=== PATIENT | male | born 1960 | race African-American/Black ===

== ENCOUNTER 2016-10-16 19:36 | Emergency (ER) | payer OTHER ==
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
[2016-10-16 19:17] LABS: BASOPHIL# 0.1 X10e3 (0-0.3); BASOPHIL% 0.7 % (0-2.5); EOSINOPHIL# 0.6 X10e3 (0-0.7); EOSINOPHIL% 7.1 % (0.0-7.0); HEMATOCRIT 38.1 % (38.0-50.0); HEMOGLOBIN 12.5 gm/dL (13.0-16.0); LYMPHOCYTE# 3.9 X10e3 (1.0-3.5); LYMPHOCYTE% 49.9 % (17.0-45.0); MEAN CELL VOLUME 105.8 FL (83-96); MEAN CORPUSCULAR HEMOGLOBIN 34.7 PG (28-34); MEAN CORPUSCULAR HGB CONC 32.8 g/dL (30-36); MEAN PLATELET VOLUME 9.8 FL (6.5-11.5); MONOCYTE# 0.5 X10e3 (0-1.0); MONOCYTE% 6.4 % (3.0-12.0); NEUTROPHIL# 2.8 X10e3 (1.5-7.1); NEUTROPHIL% 35.9 % (40-75); PLATELET COUNT 192 X10e3 (140-420); RED CELL DISTRIBUTION WIDTH 15.3 % (11.0-15.5); WHITE BLOOD COUNT 7.9 X10e3 (4.0-10.5)
[2016-10-16 19:20] LABS: DIFF IND NO
[2016-10-16 19:32] LABS: PARTIAL THROMBOPLASTIN TIME 26.4 SECONDS (23.5-31.3)
[~2016-10-16 19:36] MED LIST: ACETAMINOPHEN650 M1 PR; ALB/IPRATROPIUM/1 E1; AMLODIPINE BESYL5 MG PO; AMOXICILLIN875 MG PO; BP MED; FLEXERIL10 MG PO; GLUCOPHAGE850 MG PO; GLUCOTROL PO; LOPID600 MG PO; METFORMIN HCL500 M1 PO; NEURONTIN300 MG PO; NORCO 7.5-3251 EACH PO; PAIN MED; PRILOSEC20 MG PO; PROTONIX PO; ROBAXIN 750750 M1; TEMAZEPAM PO
[2016-10-16 19:40] LABS: ALBUMIN SERUM 3.8 g/dL (3.5-5.0); ALKALINE PHOSPHATASE 100 U/L (32-92); ALT (SGPT) 37 U/L (10-40); AST (SGOT) 39 U/L (10-42); BILIRUBIN, DIRECT 0.1 mg/dL (0.0-0.2); BILIRUBIN,INDIRECT 0.3 mg/dL (0.0-0.9); BILIRUBIN,TOTAL 0.4 mg/dL (0.2-2.0); BLOOD UREA NITROGEN 18 mg/dL (9-23); CALCIUM SERUM 9.1 mg/dL (8.4-10.2); CARBON DIOXIDE 25 mmol/L (22-31); CHLORIDE 102 mmol/L (100-111); CREATININE SERUM 1.2 mg/dL (0.6-1.4); GLOM FILT RATE Estimated ABOVE60 mL/min (>60); GLUCOSE FASTING 67 mg/dL (70-110); POTASSIUM 4.1 mmol/L (3.5-5.1); PROTEIN TOTAL SERUM 8.4 g/dL (6.0-8.3); SODIUM 137 mmol/L (135-145)
== END 2016-10-16 19:55 | disposition home or self-care (01) ==
LOC: CED 19:36
PROVIDERS: Emergency Medicine
DX: S31.114A Laceration without foreign body of abdominal wall, left lower quadrant without penetration into peritoneal cavity, initial encounter (principal); E11.9 Type 2 diabetes mellitus without complications; F17.210 Nicotine dependence, cigarettes, uncomplicated; X58.XXXA Exposure to other specified factors, initial encounter; Y92.488 Other paved roadways as the place of occurrence of the external cause
CPT/HCPCS: 36415; 71010; 80048; 80076; 85025; 85610; 85730; 99285

== ENCOUNTER → 2016-12-20 | Outpatient (CLI) | payer OTHER ==
--- NOTE | ~2016-12-20 | MR32 ---
[facility] A Service of [facility] & [facility] RADIOLOGY TEXT RESULTS PATIENT: JODY PASTRANA LOCATION: [facility] : 56 UNIT #: [id number] AGE: [address]: Lesli Lassiter APRN SEX: M ORDER DR: [id number] [facility] [address] [place], [place] [address] [id number] O MR#: [id number] Acc #: [id number] NAME: OJDY PASTRANA : 1960 SEX: M STUDY DATE/TIME: 12/20/2016 9:28 UNIT: [facility] ROOM: STUDY DESCRIPTION: MR Cervical Wo Contrast Attending Physician: Lesli Lassiter A.P.R.N. Referring Physician: Lesli Lassiter A.P.R.N. Ordering Physician: Lesli Lassiter A.P.R.N. Primary Care Physician: Yumiko Casanova M.D. MRI CENTER REPORT This report is preliminary unless electronic signature is present. 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 Right hand tremors. Additional complaint of right leg pain and numbness for 2 months. TECHNIQUE Multiplanar imaging of the cervical spine was performed with short and long TR. FINDINGS Alignment is satisfactory. Degenerative changes are seen throughout the cervical spine. At C2-3, there is minimal midline disc bulging and osteophyte. The canal and foramina are widely patent. At C3-4, there is mild disc space narrowing and a central disc osteophyte complex that contacts the ventral cord in the midline but does not compress it. The foramina are widely patent. At C4-5, there is disc space narrowing with central disc protrusion and osteophyte. This contacts and slightly flattens the ventral cord in the midline. Central stenosis is mild. Foraminal stenosis is mild bilaterally. At C5-6, the disc is markedly narrowed. There is broad-based posterior disc with osteophyte extending to both uncovertebral joints. Central stenosis is mild. Foraminal stenosis is mild bilaterally. At C6-7, there is disc space collapse with a broad-based posterior disc STS. [facility] A Service of [facility] & [facility] RADIOLOGY TEXT RESULTS PATIENT: JODY PASTRANA LOCATION: [facility] : 56 UNIT #: [id number] AGE: [address]: Lesli Lassiter APRN SEX: M ORDER DR: osteophyte complex. Central stenosis is mild. Foraminal stenosis is mild on the right and moderate on the left. The C7-T1 level shows wide patency of the canal and foramina. The cervical cord is normal in size and signal. No right-sided exiting nerve root compression is seen to account for the patient's right-sided symptoms. The most prominent right-sided foraminal stenosis is at C5-6. IMPRESSION Multilevel degenerative disc disease as described above. No evidence of discrete disc herniation. Degenerative changes are most prominent from C3-4 through C6-7. Central stenosis and foraminal stenosis is most prominent at the C5-6 level. Central disc protrusion is most prominent at the C4-5 level. Dictated by... Austin Martinez M.D. THIS IS AN ELECTRONICALLY VERIFIED REPORT Austin Martinez M.D. at 12/20/2016 4:28 PM MELVIN/rolan TD: 12/20/2016 11:57 JOB #: [id number] MRI CENTER REPORT Page 1 of 1 COPY
--- NOTE | ~2016-12-20 | CT98 ---
[facility] A Service of [facility] & [facility] RADIOLOGY TEXT RESULTS PATIENT: JODY PASTRANA LOCATION: [facility] : 56 UNIT #: [id number] AGE: [address]: Lesli Lassiter APRN SEX: M ORDER DR: [id number] [facility] [address] [place], [place] [address] [id number] O MR#: [id number] Acc #: [id number] NAME: JODY PASTRANA : 1960 SEX: M STUDY DATE/TIME: 12/20/2016 8:53 UNIT: [facility] ROOM: STUDY DESCRIPTION: CT Lumbar Spine Wo Cont Attending Physician: Lesli Lassiter A.P.R.N. Referring Physician: Lesli Lassiter A.P.R.N. Ordering Physician: Hasmukh Not Listed Primary Care Physician: Yumiko Casanova M.D. MEDICAL IMAGING REPORT This report is preliminary unless electronic signature is present EXAM Lumbar spine CT, no contrast, 12/20/2016. PROCEDURE Axial lumbar spine CT without contrast, with multiplanar reformats. This CT exam was performed with one or more of the following radiation dose reduction techniques: automatic exposure control, adjustment of mA and/or kV according to patient size, and iterative reconstruction. COMPARISON Lumbar spine CT, 12/04/2012. HISTORY 2-month history of right low back and leg pain. FINDINGS There has been previous fusion at L5-S1. There are bilateral pedicle screws at L5 and S1, and a disc prosthetic at L5-S1. There is no definite osseous union across the disc or posterior elements. There is slight lucency around the right S1 screw, though no convincing lucency around any of the other screws and no evidence of posterior altagracia failure. Alignment is normal, and while there is bony sclerosis around the L5-S1 disc, there is no fracture or bone erosion or destruction at any level. The paraspinous soft tissues are unremarkable. At L1-L2, the disc, canal, and foramina are normal. At L2-L3, there is a slight disc bulge and no more than borderline canal narrowing and no foraminal narrowing. At L3-L4, there is a disc bulge and facet arthropathy and perhaps borderline canal narrowing and mild right and left foraminal stenosis. [facility]S. [facility] A Service of [facility] & [facility] RADIOLOGY TEXT RESULTS PATIENT: JODY PASTRANA LOCATION: [facility] : 56 UNIT #: [id number] AGE: [address]: Lesli Lassiter APRN SEX: M ORDER DR: At L4-L5, disc and endplate change and facet arthropathy are seen, but are difficult to distinguish from any granulation tissue. There may be moderate or even moderate to severe canal stenosis, though that may be an overestimate. There is mild to moderate or moderate left and right foraminal narrowing, though, again, some portion of that may be granular tissue, and it is difficult to distinguish. At L5-S1, there is no canal stenosis. There is again probably at least moderate right and mild left foraminal narrowing, though granular tissue may represent a portion of that. IMPRESSION 1. Question some loosening of the right sacral screw. There is certainly lucency around it, though modest. 2. At L4-L5, there is some disc and endplate change and ligamentum thickening and mild facet arthropathy. There may be up to moderate canal stenosis, though adjacent operative changes suggest that it is certainly possible that granulation tissue may contribute to that to some degree, though the operative level was, in fact, L5-S1. There is bilateral foraminal compromise, as well, and both are certainly more prominent than at the time of the lumbar spine CT of 12/04/2012. See above for [id number] details. Dictated by... Adrian Valle M.D. THIS IS AN ELECTRONICALLY VERIFIED REPORT Adrian Valle M.D. at 12/24/2016 12:14 PM SHANTAL/tanja TD: 12/20/2016 13:03 JOB #: [id number] MEDICAL IMAGING REPORT Page 1 of 1 COPY
== END | disposition home or self-care (01) ==
LOC: CCAT 08:18
DX: M54.5 Low back pain (principal); M48.06 Spinal stenosis, lumbar region; M12.88 Other specific arthropathies, not elsewhere classified, other specified site; M48.07 Spinal stenosis, lumbosacral region; M99.83 Other biomechanical lesions of lumbar region; M51.86 Other intervertebral disc disorders, lumbar region; G95.89 Other specified diseases of spinal cord; Z98.1 Arthrodesis status
CPT/HCPCS: 72131; 72141

== ENCOUNTER → 2017-04-16 | Outpatient (CLI) | payer OTHER ==
--- NOTE | ~2017-04-16 | CT57 ---
[facility] A Service of [facility] RADIOLOGY TEXT RESULTS PATIENT: JODY PASTRANA LOCATION: [facility] : 56 UNIT #: [id number] AGE: [address]: Yumiko Casanova MD SEX: M ORDER DR: [id number] [address] [address] [id number] O MR#: [id number] Acc #: [id number] NAME: JODY PASTRANA : 1960 SEX: M STUDY DATE/TIME: 04/16/2017 15:08 UNIT: [facility] ROOM: STUDY DESCRIPTION: CT Chest Wo Cont Attending Physician: Yumiko Casanova M.D. Referring Physician: Yumiko Casanova M.D. Ordering Physician: Yumiko Casanova M.D. Primary Care Physician: Yumiko Casanova M.D. MEDICAL IMAGING REPORT This report is preliminary unless electronic signature is present EXAM CT chest without contrast INDICATIONS Pulmonary nodule. Shortness of air for the past [address] of the chest COMPARISON No prior chest CTs available for comparison. TECHNIQUE This CT exam was performed with one or more of the following radiation dose reduction techniques: automatic exposure control, adjustment of mA and/or kV according to patient size, and iterative reconstruction. FINDINGS No dense consolidation, pleural fluid or pneumothorax. Scattered small calcified and noncalcified pulmonary nodules. A 5 mm nodule adjacent to the right minor fissure is noncalcified. No adenopathy. No acute findings in the upper abdomen. No aggressive appearing bone lesion. IMPRESSION 1. No acute findings in the chest. 2. Small calcified and noncalcified nodules. Largest noncalcified nodules along the right minor fissure measures 5 mm. Correlate with patient's risk factors. If patient has low risk factors, no additional followup is required. If the patient has high risk factors, a followup chest CT in 12 months is recommended. Dictated by... [facility] A Service of [facility] RADIOLOGY TEXT RESULTS PATIENT: JODY PASTRANA LOCATION: [facility] : 56 UNIT #: [id number] AGE: [address]: Yumiko Casanova MD SEX: M ORDER DR: Torres Henderson M.D. THIS IS AN ELECTRONICALLY VERIFIED REPORT Torres Henderson M.D. at 04/18/2017 2:37 PM SARAHD/vita TD: 04/17/2017 13:12 JOB #: [id number] MEDICAL IMAGING REPORT Page 1 of 1 COPY
== END | disposition home or self-care (01) ==
LOC: CCAT 14:40
DX: R91.1 Solitary pulmonary nodule (principal); R91.8 Other nonspecific abnormal finding of lung field
CPT/HCPCS: 71250